=== PATIENT | male | born 1950 | race Native Hawaiian/Other Pacific Islander ===

== ENCOUNTER 2016-12-22 04:13 | Outpatient (CLI) | payer OTHER | END 2016-12-22 05:13 | disposition home or self-care (01) | LOC: LABW 04:13 | DX: E11.9 Type 2 diabetes mellitus without complications (principal) | CPT/HCPCS: 36415; 82947; 83036 ==

== ENCOUNTER 2017-03-19 05:43 | Outpatient (CLI) | payer OTHER ==
[2017-03-19 06:25] LABS: PLATELET COUNT 98 K/uL (142-355)
[2017-03-19 06:42] LABS: POTASSIUM 4.3 mmol/L (3.6-5.2); SODIUM 139 mmol/L (136-145)
== END 2017-03-19 07:00 | disposition home or self-care (01) ==
LOC: LABW 05:43
PROVIDERS: Internal Medicine
DX: E11.9 Type 2 diabetes mellitus without complications (principal)
CPT/HCPCS: 36415; 80053; 80061; 81000; 82043; 82570; 83036; 84443; 85027

== ENCOUNTER 2017-06-27 06:08 | Outpatient (CLI) | payer OTHER ==
[2017-06-27 07:00] LABS: PLATELET COUNT 112 K/uL (142-355)
[2017-06-27 08:05] LABS: POTASSIUM 4.1 mmol/L (3.6-5.2); SODIUM 137 mmol/L (136-145)
== END 2017-06-27 07:10 | disposition home or self-care (01) ==
LOC: LABW 06:08
PROVIDERS: Internal Medicine
DX: Z00.00 Encounter for general adult medical examination without abnormal findings (principal); E11.9 Type 2 diabetes mellitus without complications
CPT/HCPCS: 36415; 80053; 80061; 83036; 84153; 84443; 85027

== ENCOUNTER 2017-12-17 07:58 | Outpatient (CLI) | payer OTHER ==
[2017-12-17 08:36] LABS: PLATELET COUNT 96 K/uL (142-355)
== END 2017-12-17 21:30 | disposition home or self-care (01) ==
LOC: LABW 07:58
PROVIDERS: Internal Medicine Rheumatology
DX: E11.9 Type 2 diabetes mellitus without complications (principal); I10 Essential (primary) hypertension; I25.10 Atherosclerotic heart disease of native coronary artery without angina pectoris; G25.81 Restless legs syndrome; K13.0 Diseases of lips; L40.52 Psoriatic arthritis mutilans; Z79.899 Other long term (current) drug therapy; Z51.81 Encounter for therapeutic drug level monitoring
CPT/HCPCS: 36415; 80053; 83036; 85027; 86140

== ENCOUNTER 2017-12-26 10:38 | Outpatient (CLI) | payer OTHER ==
[2017-12-26 11:27] LABS: PLATELET COUNT 100 K/uL (142-355)
[2017-12-26 11:35] LABS: POTASSIUM 3.9 mmol/L (3.6-5.2)
== END 2017-12-26 18:20 | disposition home or self-care (01) ==
LOC: LABW 10:38
PROVIDERS: Internal Medicine Rheumatology
DX: L40.59 Other psoriatic arthropathy (principal); Z79.899 Other long term (current) drug therapy; Z51.81 Encounter for therapeutic drug level monitoring
CPT/HCPCS: 36415; 80053; 85027

== ENCOUNTER 2018-01-25 09:57 | Outpatient (CLI) | payer OTHER ==
[2018-01-25 10:46] LABS: PLATELET COUNT 106 K/uL (142-355)
[2018-01-25 11:31] LABS: POTASSIUM 3.9 mmol/L (3.6-5.2)
== END 2018-01-25 22:25 | disposition home or self-care (01) ==
LOC: US 09:57 → LABW 09:57 → US 11:00 → LABW 22:25
PROVIDERS: Internal Medicine
DX: Z00.00 Encounter for general adult medical examination without abnormal findings (principal); Z12.5 Encounter for screening for malignant neoplasm of prostate; E11.9 Type 2 diabetes mellitus without complications; Z13.6 Encounter for screening for cardiovascular disorders
CPT/HCPCS: 36415; 80053; 80061; 82043; 82570; 83036; 84153; 84439; 84443; 85027

== ENCOUNTER 2018-02-05 14:15 | Outpatient (CLI) | payer OTHER | END 2018-02-05 19:38 | disposition home or self-care (01) | LOC: LAB 14:15 | DX: R19.7 Diarrhea, unspecified (principal) | CPT/HCPCS: 82272; 87015; 87045; 87205; 87206; 87324; 87328; 87329; 87449; 87507; 87899 ==

== ENCOUNTER 2018-02-12 15:15 | Outpatient (CLI) | payer OTHER | END 2018-02-12 20:01 | disposition home or self-care (01) | LOC: RAD 15:15 | DX: M25.551 Pain in right hip (principal); M25.552 Pain in left hip; M54.2 Cervicalgia; M54.5 Low back pain ==

== ENCOUNTER 2018-03-11 09:12 | Outpatient (CLI) | payer OTHER | END 2018-03-11 22:02 | disposition home or self-care (01) | LOC: US 09:12 | DX: I10 Essential (primary) hypertension (principal) ==

== ENCOUNTER 2018-03-15 23:29 | Emergency (ER) | payer OTHER ==
[~2018-03-15] VITALS: Ht 182.9 cm; Wt 108.9 kg
[2018-03-15 23:35] VITALS: BP 232/124; TEMP 97.2
[2018-03-16 00:44] LABS: PLATELET COUNT 101 K/uL (142-355)
[2018-03-16 00:56] LABS: POTASSIUM 3.6 mmol/L (3.6-5.2)
== END 2018-03-16 01:57 | disposition home or self-care (01) ==
LOC: ED 23:29
PROVIDERS: Emergency Medicine
DX: K52.89 Other specified noninfective gastroenteritis and colitis (principal)
CPT/HCPCS: 36415; 74022; 80053; 81000; 82150; 83690; 85027; 99283

== ENCOUNTER 2018-03-16 13:56 | Outpatient (CLI) | payer OTHER | END 2018-03-16 14:06 | disposition short-term general hospital (02) | LOC: AMB 13:56 | DX: R10.9 Unspecified abdominal pain (principal); R11.2 Nausea with vomiting, unspecified | CPT/HCPCS: A0425; A0429 ==

== ENCOUNTER 2018-03-16 14:10 | Inpatient (IN) | payer OTHER ==
[~2018-03-16] VITALS: Ht 182.9 cm; Wt 105.9 kg
[2018-03-16 14:10] VITALS: BP 191/105; TEMP 98.6
[2018-03-16 18:28] VITALS: BP 173/89
[2018-03-16 21:54] VITALS: BP 169/91; TEMP 98.8; Ht 182.9 cm; Wt 105.9 kg
[2018-03-17] VITALS: BP 123/67; TEMP 99
[2018-03-17 04:00] VITALS: BP 158/82; BP 71/24; TEMP 97.7; TEMP 99.1
[2018-03-17 08:00] VITALS: BP 138/79; TEMP 98.9
[2018-03-17 12:00] VITALS: BP 119/77; TEMP 98.8
[2018-03-17 16:00] VITALS: BP 155/90; TEMP 97.8
[2018-03-17 19:40] VITALS: BP 169/90; TEMP 98.2
[2018-03-18 00:22] VITALS: BP 148/68; TEMP 99.1
[2018-03-18 04:00] VITALS: BP 173/96; TEMP 99
[2018-03-18 05:45] LABS: PLATELET COUNT 98 K/uL (142-355)
[2018-03-18 05:56] LABS: POTASSIUM 3.2 mmol/L (3.6-5.2)
[2018-03-18 07:16] VITALS: BP 155/85; TEMP 99.1
[2018-03-18 12:00] VITALS: BP 115/82; TEMP 98.3
[2018-03-18 16:03] VITALS: BP 150/82; TEMP 97.6
[2018-03-18 20:00] VITALS: BP 153/86; TEMP 98.2
[2018-03-19] VITALS: BP 156/86; TEMP 98.1
[2018-03-19 04:00] VITALS: BP 170/87; TEMP 98.2
[2018-03-19 08:20] VITALS: BP 171/87; TEMP 98.1
== END 2018-03-19 09:37 | disposition home or self-care (01) | DRG 419 ==
LOC: ED 14:10 → MED/SURG 18:27
PROVIDERS: ADMIT Internal Medicine
PROC: 0FT44ZZ Resection of Gallbladder, Percutaneous Endoscopic Approach (ICD-10-PCS; principal; 2018-03-18)
DX: K80.12 Calculus of gallbladder with acute and chronic cholecystitis without obstruction (principal); I10 Essential (primary) hypertension; K21.9 Gastro-esophageal reflux disease without esophagitis; I25.10 Atherosclerotic heart disease of native coronary artery without angina pectoris; E78.4 Other hyperlipidemia; N40.0 Benign prostatic hyperplasia without lower urinary tract symptoms; E03.8 Other specified hypothyroidism; E11.9 Type 2 diabetes mellitus without complications; E87.6 Hypokalemia
CPT/HCPCS: 80053; 81000; 82150; 82947; 82948; 83690; 85027; 93005; 94760; 96372; 96374; 96375; 99284; J0180; J0132; J0690; J1100; J1170; J1644; J1815; J1885; J2405; J2765; J3010; J3490; Q9963

== ENCOUNTER 2018-04-16 11:11 | Outpatient (CLI) | payer OTHER | END 2018-04-16 19:08 | disposition home or self-care (01) | LOC: MRI 11:11 | DX: M54.2 Cervicalgia (principal) ==

== ENCOUNTER 2018-04-25 08:52 | Outpatient (CLI) | payer OTHER | END 2018-04-25 22:47 | disposition home or self-care (01) | LOC: US 08:52 | DX: D69.6 Thrombocytopenia, unspecified (principal); R16.2 Hepatomegaly with splenomegaly, not elsewhere classified ==

== ENCOUNTER 2018-04-26 05:34 | Outpatient (CLI) | payer OTHER ==
[2018-04-26 05:57] LABS: PLATELET COUNT 104 K/uL (142-355)
[2018-04-26 06:12] LABS: POTASSIUM 3.6 mmol/L (3.6-5.2)
== END 2018-04-26 22:26 | disposition home or self-care (01) ==
LOC: LABW 05:34
PROVIDERS: Internal Medicine
DX: I10 Essential (primary) hypertension (principal); E03.8 Other specified hypothyroidism
CPT/HCPCS: 36415; 80053; 81000; 84436; 84443; 85027

== ENCOUNTER 2018-07-08 14:43 | Outpatient (CLI) | payer OTHER ==
[2018-07-08 14:56] LABS: PLATELET COUNT 101 K/uL (142-355)
[2018-07-08 15:08] LABS: POTASSIUM 3.6 mmol/L (3.6-5.2)
== END 2018-07-08 20:02 | disposition home or self-care (01) ==
LOC: LABW 14:43
PROVIDERS: Internal Medicine Medical Oncology
DX: D69.6 Thrombocytopenia, unspecified (principal); R53.81 Other malaise
CPT/HCPCS: 36415; 80053; 80074; 85027

== ENCOUNTER 2018-08-05 11:15 | Outpatient (CLI) | payer OTHER ==
[2018-08-05 11:48] LABS: PLATELET COUNT 104 K/uL (142-355)
== END 2018-08-05 20:00 | disposition home or self-care (01) ==
LOC: LABW 11:15
PROVIDERS: Internal Medicine Medical Oncology
DX: D69.6 Thrombocytopenia, unspecified (principal); R53.81 Other malaise; D64.9 Anemia, unspecified
CPT/HCPCS: 36415; 80053; 82728; 83540; 83550; 85027

== ENCOUNTER 2018-10-10 07:09 | Outpatient (CLI) | payer OTHER ==
[2018-10-10 08:06] LABS: PLATELET COUNT 133 K/uL (142-355)
[2018-10-10 08:29] LABS: POTASSIUM 3.2 mmol/L (3.6-5.2)
== END 2018-10-10 22:29 | disposition home or self-care (01) ==
LOC: LABW 07:09
PROVIDERS: Internal Medicine Gastroenterology
DX: B19.10 Unspecified viral hepatitis B without hepatic coma (principal); E11.9 Type 2 diabetes mellitus without complications
CPT/HCPCS: 80053; 80061; 81000; 83036; 83540; 84439; 84443; 85027; 87350; 87517

== ENCOUNTER 2018-12-24 11:19 | Outpatient (CLI) | payer OTHER | END 2018-12-24 22:48 | disposition home or self-care (01) | LOC: LAB 11:19 | DX: R19.7 Diarrhea, unspecified (principal) | CPT/HCPCS: 82272; 83630; 87015; 87045; 87206; 87324; 87328; 87329; 87449; 87507; 87899 ==

== ENCOUNTER 2019-01-21 08:31 | Outpatient (CLI) | payer OTHER | END 2019-01-21 22:45 | disposition home or self-care (01) | LOC: RAD 08:31 | DX: R13.19 Other dysphagia (principal) ==

== ENCOUNTER 2019-04-15 09:55 | Outpatient (CLI) | payer OTHER | END 2019-04-15 20:00 | disposition home or self-care (01) | LOC: US 09:55 | DX: M79.89 Other specified soft tissue disorders (principal); R22.43 Localized swelling, mass and lump, lower limb, bilateral ==

== ENCOUNTER 2019-04-22 10:29 | Outpatient (CLI) | payer OTHER | END 2019-04-22 23:26 | disposition home or self-care (01) | LOC: LABW 10:29 | PROVIDERS: Internal Medicine | DX: M79.89 Other specified soft tissue disorders (principal) | CPT/HCPCS: 36415; 80048 ==

== ENCOUNTER 2019-05-06 10:03 | Outpatient (CLI) | payer OTHER | END 2019-05-06 23:43 | disposition home or self-care (01) | LOC: RAD 10:03 | DX: M05.89 Other rheumatoid arthritis with rheumatoid factor of multiple sites (principal) ==

== ENCOUNTER 2019-06-02 07:35 | Outpatient (CLI) | payer OTHER ==
[2019-06-02 07:51] LABS: PLATELET COUNT 171 K/uL (142-355)
[2019-06-02 08:12] LABS: POTASSIUM 3.3 mmol/L (3.6-5.2)
== END 2019-06-02 23:59 | disposition home or self-care (01) ==
LOC: LABW 07:35
PROVIDERS: Internal Medicine
DX: E11.9 Type 2 diabetes mellitus without complications (principal); E03.8 Other specified hypothyroidism
CPT/HCPCS: 36415; 80053; 80061; 81000; 83036; 84439; 84443; 85007; 85027

== ENCOUNTER 2019-06-11 10:11 | Outpatient (CLI) | payer OTHER | END 2019-06-11 21:36 | disposition home or self-care (01) | LOC: LABW 10:11 | DX: K11.7 Disturbances of salivary secretion (principal); K13.0 Diseases of lips; L40.0 Psoriasis vulgaris; L40.59 Other psoriatic arthropathy; M05.89 Other rheumatoid arthritis with rheumatoid factor of multiple sites; D64.89 Other specified anemias | CPT/HCPCS: 85014; 85018 ==

== ENCOUNTER 2019-07-04 08:09 | Outpatient (CLI) | payer OTHER ==
[2019-07-04 08:33] LABS: PLATELET COUNT 188 K/uL (142-355)
== END 2019-07-04 22:09 | disposition home or self-care (01) ==
LOC: LABW 08:09
PROVIDERS: Internal Medicine Medical Oncology
DX: D64.89 Other specified anemias (principal); R53.81 Other malaise; D69.6 Thrombocytopenia, unspecified
CPT/HCPCS: 36415; 80053; 82728; 83540; 83550; 85027

== ENCOUNTER 2019-07-11 19:30 | Emergency (ER) | payer OTHER ==
[~2019-07-11] VITALS: Ht 182.9 cm; Wt 93.0 kg
[2019-07-11 19:42] VITALS: TEMP 99
[2019-07-11 22:16] LABS: PLATELET COUNT 179 K/uL (142-355)
[2019-07-11 23:37] VITALS: BP 177/93
== END 2019-07-11 23:40 | disposition home or self-care (01) ==
LOC: ED 19:30
PROVIDERS: Family Medicine
DX: I10 Essential (primary) hypertension (principal); E87.6 Hypokalemia
CPT/HCPCS: 80053; 81000; 85027; 99282; 99283

== ENCOUNTER 2019-08-18 10:09 | Outpatient (CLI) | payer OTHER ==
[2019-08-18 10:29] LABS: PLATELET COUNT 221 K/uL (142-355)
[2019-08-18 10:53] LABS: POTASSIUM 3.3 mmol/L (3.6-5.2)
== END 2019-08-18 19:14 | disposition home or self-care (01) ==
LOC: LABW 10:09
PROVIDERS: Internal Medicine Medical Oncology
DX: D69.6 Thrombocytopenia, unspecified (principal); R53.81 Other malaise; D64.89 Other specified anemias
CPT/HCPCS: 36415; 80053; 82607; 82728; 82746; 83540; 83550; 85027; 85044

== ENCOUNTER 2019-09-02 09:44 | Outpatient (CLI) | payer OTHER | END 2019-09-02 19:35 | disposition home or self-care (01) | LOC: LAB 09:44 | DX: Z00.00 Encounter for general adult medical examination without abnormal findings (principal); Z12.5 Encounter for screening for malignant neoplasm of prostate; R53.83 Other fatigue | CPT/HCPCS: 81000 ==

== ENCOUNTER 2019-09-08 10:36 | Outpatient (CLI) | payer OTHER ==
[2019-09-08 11:13] LABS: PLATELET COUNT 210 K/uL (142-355)
[2019-09-08 11:26] LABS: POTASSIUM 3.4 mmol/L (3.6-5.2)
== END 2019-09-08 20:52 | disposition home or self-care (01) ==
LOC: LAB 10:36
PROVIDERS: Internal Medicine
DX: Z00.00 Encounter for general adult medical examination without abnormal findings (principal); D69.6 Thrombocytopenia, unspecified; D64.89 Other specified anemias; R53.81 Other malaise; Z12.5 Encounter for screening for malignant neoplasm of prostate; N40.0 Benign prostatic hyperplasia without lower urinary tract symptoms; Z79.899 Other long term (current) drug therapy
CPT/HCPCS: 80053; 80061; 84153; 84439; 84443; 85027